=== PATIENT | male | born 1950 | race Caucasian/White ===

== ENCOUNTER 2017-02-17 12:58 | Day surgery (SDC) | payer MEDICARE ==
[2017-02-17] MEDS ORDERED: PROPOFOL 10 MG/ML VIAL IV ONE (14:00)
[2017-02-17] MEDS ORDERED: LIDOCAINE 2% MDV (20MG/ML) 20ML VIAL IV ONE (14:00)
--- NOTE | 2017-02-21 11:46 | Operative Note ---
DATE OF SURGERY: 02/17/2017 OPERATION: COLONOSCOPY with cold forceps polypectomy x4. PREOPERATIVE DIAGNOSIS: Personal history of colon polyps. POSTOPERATIVE DIAGNOSES: 1. Ascending colon polyps x3. 2. Rectal polyp x1. PREPARATION QUALITY: Good. ESTIMATED BLOOD LOSS: Minimal. SPECIMENS: Ascending colon polyps and rectal polyp. COMPLICATIONS: None apparent. PROCEDURE: After informed consent was obtained from the patient, he was placed in the left lateral decubitus position in the endoscopy suite, sedated and monitored by the department of anesthesia. Digital rectal examination was unremarkable. A well-lubricated [id number] colonoscope was inserted into the rectum and advanced to the cecum. Preparation quality was good. The cecum was unremarkable. In the ascending colon, there were 3 diminutive polyps each removed with a cold forceps with minimal bleeding noted. The remainder of the ascending colon, transverse colon, descending colon, sigmoid colon, and rectum were otherwise unremarkable. No polyps, mass lesions, or inflammation was seen. The rectum was unremarkable in forward views but J-turn views did reveal a diminutive polyp which was removed with a cold forceps. The endoscope was straightened, the rectal ampulla deflated, and the endoscope was removed. RECOMMENDATIONS: I would suggest the patient resume his medications and diet. He should have a repeat exam in 3 to 5 years pending tissue histology. As always, thank you for allowing me to participate in the healthcare of your patients. Fredi Leigh DO CC: Dr. Clinton KLINE
== END 2017-02-17 15:16 | disposition home or self-care (01) ==
LOC: HOP 12:58
PROVIDERS: ATTEND Internal Medicine Gastroenterology
DX: Z86.010 Personal history of colon polyps (principal); D12.2 Benign neoplasm of ascending colon; D12.8 Benign neoplasm of rectum; I10 Essential (primary) hypertension

== ENCOUNTER 2019-10-25 14:43 | Emergency (ER) | payer MEDICARE ==
[2019-10-25] MEDS ORDERED: 0.9 % SODIUM CHLORIDE 1,000 ML BAG IV ONE (15:25)
--- NOTE | 2019-10-25 15:25 | Emergency Department Record ---
History of Present Illness - General Chief Complaint: Dizziness Stated Complaint: HYPERTENTION Time Seen by Provider: 10/25/19 14:54 Source: Patient Mode of Arrival: EMS Limitations: No limitations - History of Present Illness Initial Comments: The patient is here due to being lightheaded mainly when walking for a week to 10 days. He denies any CP, SOB, BETTIE, sweating or nausea with the lightheadness. The patient states he changed a blood pressure medicine just prior to the symptoms starting. He says he was on Hyzarr and was switched to Benicar. Shortly after the symptoms started. He denies any recent illnesses or injuries. MD Complaint: Lightheadedness Onset/Timin -: Week(s) Improves With: Rest Worsens With: Movement, Exertion Associated Symptoms: Denies other symptoms - [place] Coma Scale Eye Response: (4) Open spontaneously Motor Response: (6) Obeys commands Verbal Response: (5) Oriented Gabriel Total: 15 - Related Data Home Medications Medication Instructions Recorded Confirmed Last Taken Allopurinol 100 mg PO BID 10/25/19 10/25/19 10/25/19 Amlodipine Besylate [Norvasc] 10 mg PO DAILY 10/25/19 10/25/19 10/25/19 Aspirin [Aspir-Low] 81 mg PO DAILY 10/25/19 10/25/19 10/25/19 Cholecalciferol (Vitamin D3) 2,000 unit PO DAILY 10/25/19 10/25/19 10/25/19 [Vitamin D3] Clopidogrel Bisulfate [Plavix] 75 mg PO DAILY 10/25/19 10/25/19 10/25/19 Duloxetine HCl [Cymbalta] 60 mg PO DAILY 10/25/19 10/25/19 10/25/19 Gabapentin [Neurontin] 200 mg PO QHS 10/25/19 10/25/19 10/25/19 Metformin ER HCl [Glucophage Xr] 500 mg PO DAILY 10/25/19 10/25/19 10/25/19 Olmesartan/Hydrochlorothiazide 1 each PO DAILY 10/25/19 10/25/19 10/25/19 [Olmesartan-Hctz 20-12.5 mg Tab] Rosuvastatin Calcium [Crestor] 40 mg PO DAILY 10/25/19 10/25/19 10/25/19 Tamsulosin HCl [Flomax] 0.4 mg PO DAILY 10/25/19 10/25/19 10/25/19 Allergies Allergy/AdvReac Type Severity Reaction Status Date / Time No Known Drug Allergies Allergy Unverified 10/10/17 09:44 Travel Screening - Travel/Exposure Within Last 30 Days Have you traveled within the last 30 days?: No - Travel/Exposure Within Last Year Have you traveled outside the [place] in the last year?: No - Additonal Travel Details Have you been exposed to anyone with a communicable illness?: No - Travel Symptoms Symptom Screening: None Review of Systems Constitutional: Denies: Chills, Fever Eyes: Denies: Eye discharge ENT: Denies: Congestion Respiratory: Denies: Cough, Dyspnea Cardiovascular: Denies: Chest pain, Dyspnea on exertion Endocrine: Reports: Fatigue Gastrointestinal: Denies: Nausea Genitourinary: Denies: Dysuria Musculoskeletal: Denies: Arthralgia Skin: Denies: Bruising Past Medical History - SOCIAL HISTORY Smoking Status: Never smoker Alcohol Use: None Drug Use: None - RESPIRATORY Hx Respiratory Disorders: No - CARDIOVASCULAR Hx Cardio Disorders: Yes Hx Cardiac Cath: Yes Hx Hypertension: Yes Hx Pacemaker/Defib: Yes (May,) - NEURO Hx Neuro Disorders: Yes Hx CVA: Yes (2002) Hx Dizziness: Yes 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 - GI Hx GI Disorders: Yes Hx of Polyps: Yes - Hx Genitourinary Disorders: Yes Hx Bladder Problem: Yes (frequency/urgency) - ENDOCRINE Hx Endocrine Disorders: Yes Hx Diabetes: Yes (type 2) - MUSCULOSKELETAL Hx Musculoskeletal Disorders: Yes Hx Arthritis: Yes Hx Gout: Yes - PSYCH Hx Psych Problems: No - HEMATOLOGY/ONCOLOGY Hx Hematology/Oncology Disorders: Yes Comment:: on Plavix Family Medical History Any Significant Family History?: No Hx Diabetes: Mother Physical Exam - General General Appearance: Alert, Oriented x3, Cooperative, No acute distress - Head Head exam: Atraumatic, Normocephalic, Normal inspection - Eye Eye exam: Normal appearance, PERRL, EOMI - ENT Throat exam: Normal inspection. negative: Tonsillar erythema, Tonsillar exudate - Neck Neck exam: Normal inspection, Full ROM. negative: Tenderness - Respiratory Respiratory exam: Normal lung sounds bilaterally. negative: Respiratory distress - Cardiovascular Cardiovascular Exam: Regular rate, Normal rhythm, Normal heart sounds - GI/Abdominal GI/Abdominal exam: Soft, Normal bowel sounds. negative: Tenderness - Extremities Extremities exam: Normal inspection, Full ROM, Normal capillary refill. negative: Tenderness - Back Back exam: Reports: Normal inspection - Neurological Neurological exam: Alert, Normal gait. negative: Abnormal gait, Motor sensory deficit - Psychiatric Psychiatric exam: negative: Anxious Course Vital Signs 10/25/19 14:46 Temperature 98.3 F Pulse Rate 64 Respiratory 16 Rate Blood Pressure 122/64 Pulse Ox 98 - Reevaluation(s) Reevaluation #1: The patient is doing very well at this time. He is up walking with no weakness or lightheadness. His BP also is stable with walking. I do believe the symptoms are due to the new BP medicine. Due to the fact his BP is running low we will hold that medicine for a week and he is to see his PCP next week for recheck and also to recheck his kidney function. I did discuss the case with Demi who is Dr. Alonzo's PA and she does agree with the plan. 10/25/19 16:25 Medical Decision Making - Data Complexity MDM Data: Labs Ordered and/or Reviewed, EKG Ordered and/or Reviewed - Lab Data Result diagrams: 10/25/19 15:33 10/25/19 15:33 - EKG Data -: EKG Interpreted by Me EKG: Abnormal EKG (AV paced at 60.) Disposition Disposition: Discharge Clinical Impression: Lightheadedness Disposition: Home, Self-Care Condition: (2) Stable Instructions: Dizziness (ED) Additional Instructions: Please stop the new BP medicine Benicar for a week. Please see your doctor early next week and have your BP rechecked along with your kidney function. Return to the ER for any worsening symptoms. Forms: Patient Portal Access Time of Disposition: 16:28 Quality - Quality Measures Quality Measures: N/A - Blood Pressure Screening View Details: Yes Does Patient Have Any of the Following: Active Dx of HTN Blood Pressure Classification: Pre-Hypertensive BP Reading Systolic Measurement: 122 Diastolic Measurement: 64 Screening for High Blood Pressure: Patient Exclusion, Hx of HTN [[id number]]
[2019-10-25 15:42] LABS: BASO % 0.1 % (0-6); EOS % 0.6 % (0-6); GRAN % 65.3 % (47-80); HEMATOCRIT 41.5 % (42.0-52.0); HEMOGLOBIN 13.8 gm/dl (14.0-18.0); LYMPH % 25.2 % (16-45); MEAN CELL VOLUME 88.5 fl (81-97); MEAN CORPUSCULAR HEMOGLOBIN 29.4 pg (27-33); MEAN CORPUSCULAR HGB CONC 33.3 g/dl (32-36); MEAN PLATELET VOLUME 10.1 fl (7.4-10.4); MONO % 8.8 % (0-9); PLATELET COUNT 242 K/uL (130-400); RED BLOOD COUNT 4.69 M/uL (4.40-5.70); RED CELL DISTRIBUTION WIDTH 13.7 % (11.5-14.5); WHITE BLOOD COUNT W/O DIFF 8.3 K/uL (4.2-12.2)
[2019-10-25 15:51] LABS: BLOOD UREA NITROGEN 23 mg/dL (8-23); CREATININE 1.7 mg/dL (0.7-1.2); EST GLOMERULAR FILTRATION RATE 42 mL/min; TOTAL PROTEIN 7.4 g/dL (6.6-8.7)
[2019-10-25 15:53] LABS: GLUCOSE,RANDOM 93 mg/dL (74-109)
[2019-10-25 15:54] LABS: INR 1.1; PARTIAL THROMBOPLASTIN TIME 27.8 SECONDS (24.5-39.1)
[2019-10-25 15:56] LABS: ALB/GLOB RATIO 1.3 (1.1-1.8); ALBUMIN 4.2 g/dL (4.0-5.0); ALKALINE PHOSPHATASE 88 U/L (40-129); ALT/SGPT 20 U/L (<41); AST/SGOT 21 U/L (10.0-50.0)
[2019-10-25 16:07] LABS: THYROID STIMULATING HORMONE 0.94 uIU/mL (0.270-4.20)
--- NOTE | 2019-10-25 16:09 | RADIOLOGY REPORT ---
EXAMINATION: Frontal and Lateral Chest EXAM DATE: 10/25/2019 4:03 PM INDICATION: lightheadness FINDINGS: Comparison with 06/11/2016. Cardiac pacemaker has been placed. The lungs are clear. No infil trates or effusions. Stable cardiac silhouette. Dictated by: Danilo Bueno MD on 10/25/2019 4:07 PM. .
[2019-10-25] MEDS ORDERED: POTASSIUM CHLORIDE 20 MEQ TABLET PO ONE (16:14)
== END 2019-10-25 16:39 | disposition home or self-care (01) ==
LOC: ER 14:43
DX: R42 Dizziness and giddiness (principal); Z95.0 Presence of cardiac pacemaker; I10 Essential (primary) hypertension; Z86.73 Personal history of transient ischemic attack (TIA), and cerebral infarction without residual deficits
CPT/HCPCS: 71046; 80053; 84443; 84484; 85025; 85610; 85730; 93005; 93010; 99284; J7030